=== PATIENT | female | born 1995 | race Asian ===

== ENCOUNTER 2021-03-29 16:32 | Emergency (ER) | payer OTHER ==
[~2021-03-29] VITALS: Ht 152.4 cm; Wt 67.4 kg
[2021-03-29 16:39] VITALS: BP 137/78
[2021-03-29] MEDS ORDERED: MECL1TAB31 PO (17:28)
== END 2021-03-29 17:38 | disposition home or self-care (01) ==
LOC: M ED 16:32
DX: S06.0X0A Concussion without loss of consciousness, initial encounter (principal); R42 Dizziness and giddiness; W19.XXXA Unspecified fall, initial encounter; Y92.9 Unspecified place or not applicable; Y93.23 Activity, snow (alpine) (downhill) skiing, snowboarding, sledding, tobogganing and snow tubing; Y99.9 Unspecified external cause status; Z87.820 Personal history of traumatic brain injury

== ENCOUNTER 2021-06-30 13:03 | Emergency (ER) | payer OTHER ==
[~2021-06-30] VITALS: Ht 152.4 cm; Wt 68.2 kg
[~2021-06-30 13:03] MED LIST: MECL1TAB31 PO
[2021-06-30 13:04] VITALS: BP 108/60
[2021-06-30] MEDS ORDERED: ALBU8.5H (13:27)
== END 2021-06-30 15:12 | disposition left against medical advice (07) ==
LOC: M ED 13:03
DX: Z53.21 Procedure and treatment not carried out due to patient leaving prior to being seen by health care provider (principal)